=== PATIENT | male | born 1945 | race Caucasian/White ===

== ENCOUNTER 2024-04-07 09:53 | Day surgery (SDC) | payer MEDICARE, OTHER, SELFPAY ==
--- NOTE | 2024-04-07 | PATH_ITS ---
[facility] Accession Number: [id number] No. of containers..02 Tissue . 01 Material submitted: . PART A: colon - RIGHT COLON RESIDUAL POLYP PART B: colon - COLON POLYP AT 40 . 01 Diagnosis: A. RIGHT COLON, RESIDUAL POLYP, BIOPSY: Focal residual sessile serrated adenoma. . B. COLON POLYP AT 40 CM: Serrated lesion, cannot exclude sessile serrated adenoma. [facility] 04/09/2024 1121 Local . 01 Electronically signed: . Jeferson Patton MD, PhD, Pathologist NPI- [id number] . 01 Gross description: . A. Received in formalin with two patient identifiers and A. Right colon, are four espinoza soft tissue fragments, 0.2-0.3 cm in greatest dimension, submitted in A1. B. Received in formalin with two patient identifiers and 2. Colon polyp at 40, is a espinoza soft tissue fragment measuring 1.5 x 0.5 x 0.3 cm. Inked blue, bisected, and submitted entirely in B1. ([id number]) /MRV 04/08/2024 1336 Local . 01 Pathologist provided ICD-10: D12.6 . 01 CPT . 047341, [id number] Specimen Comment: A courtesy copy of this report has been sent to [phone] Performed at: [address] [facility] [address], [place], [place] [id number] MD Cory Gaines MD Phone: [phone]
[2024-04-07 10:25] VITALS: BP 141/78; PULSE 82; RESP 16; TEMP 36.2; O2SAT 97
--- NOTE | 2024-04-07 11:22 | PM.HP.1 ---
History of Present Illness History of Present Illness Date Patient Seen: 04/07/24 Chief complaint: SDC Narrative: Personal history of colon polyps last colonoscopy 5 years ago PFSH Social History Smoking Status: Former smoker alcohol intake: former Meds Home Medications and Allergies Home Medications Medication Instructions Recorded Confirmed Type atorvastatin 20 mg tablet mg DAILY 04/07/24 History glimepiride 4 mg tablet mg 04/07/24 History metformin 500 mg tablet,extended mg PO 04/07/24 History release 24 hr pioglitazone 45 mg tablet mg DAILY 04/07/24 History semaglutide 2 mg/dose (8 mg/3 mL) mg SUBCUT 04/07/24 History subcutaneous pen injector (Ozempic) Allergies Allergy/AdvReac Type Severity Reaction Status Date / Time No Known Drug Allergies Allergy Verified 04/07/24 10:21 Exam Vital Signs (past 8 hours): - 04/07/24 10:25 Temperature 97.1 F L Pulse Rate 82 Respiratory Rate 16 Blood Pressure 141/78 H Pulse Oximetry 97 Oxygen Delivery Method Room Air Oxygen Delivery Method Room Air Narrative Exam Narrative: Oropharynx free of lesions Chest clear to auscultation percussion Cardiac exam reveals no S3 or murmur Assessment & Plan Assessment & Plan narrative: 1. History of large colon polyps need for follow-up colonoscopy. Risks, benefits, alternatives have been explained. Time-Based Coding :: [TOTAL MINUTES] spent with patient and on the chart (including review of chart, obtaining history, exam, reviewing outside data, placing orders, documenting exam and treatment plan, and counseling patient) on [DATE].
[2024-04-07 12:07] VITALS: BP 130/70; PULSE 84; RESP 16; TEMP 37; O2SAT 97
--- NOTE | 2024-04-07 12:07 | PM.OP.COLON ---
Operative Date/Time/Diagnoses Pre-op diagnosis: See indication and findings Procedure & Clinicians Study performed: Colonoscopy Same procedure as scheduled: Yes Indications: History of large colon polyps need for follow-up colonoscopy Surgeon: Mik Bowden Procedure Notes Procedure in detail: After informed consent was obtained the patient was placed in left lateral decubitus position. The video colonoscope was introduced the rectum slowly advanced cecum. Preparation was good. On slow withdrawal mucosa was carefully examined. The scope was removed. The patient tolerated the procedure well. Blood loss none Complications none Sedation mac Findings 1. 8 mm residual polyp seen in the midst of a large tattoo just distal to the IC valve in the right colon. The Jumbo biopsy forceps were used x3 and was completely removed. 2. Large submucosal cyst in the transverse colon not biopsied or removed (pillow sign positive) 3. 8 mm polyp semi sessile at 40 cm this was cold snared and removed completely Will be in touch with Mr. Franco regarding his biopsies. This will determine his possible follow-up.
[2024-04-07 12:12] VITALS: BP 124/64; PULSE 84; RESP 15; TEMP 36.9; O2SAT 94
[2024-04-07 12:18] VITALS: BP 118/65; PULSE 83; RESP 12; TEMP 36.6; O2SAT 94
[2024-04-07 12:22] VITALS: BP 116/63; PULSE 81; RESP 12; TEMP 36.7; O2SAT 94
== END 2024-04-07 12:54 | disposition home or self-care (01) ==
PROVIDERS: Referring Provider Internal Medicine Gastroenterology; Visit Provider Internal Medicine Gastroenterology
PROC: 0DJD8ZZ Inspection of Lower Intestinal Tract, Via Natural or Artificial Opening Endoscopic (ICD-10-PCS; CPT 45378; principal; 2024-04-07 11:30)
DX: Z12.11 Encounter for screening for malignant neoplasm of colon (principal); Z86.0100 Personal history of colon polyps, unspecified; D12.2 Benign neoplasm of ascending colon; D12.6 Benign neoplasm of colon, unspecified
CPT/HCPCS: 45385; 45380; J2704